=== PATIENT | female | born 1975 | race Caucasian/White ===

== ENCOUNTER → 2018-06-16 | Outpatient (CLI) | payer BC, OTHER ==
[~2018-06-16] MED LIST: AMITRIPTYLINE H25 M2; AMITRIPTYLINE H25 M3 PO; APIDRA; ATIVAN2 MG PO; AUGMENTIN 875875 MG; BACTRIM DS TAB1 EACH PO; COLACE1 EAC1 PO; DIFLUCAN150 MG PO; K-DUR 20 MEQ T20 MEQ PO; LANTUS100 UNIT/M SUBQ; LORTAB 5 MG/5001 TA1; NABUMETONE 750750 M1 PO; NORCO 5-325 TA1 EACH PO; NORTRIPTYLINE H50 MG PO; NOVOLOG100 UNIT/1; PHENERGAN 25 MG25 M1; PHENERGAN 25 MG25 M1 PO; PHENERGAN25 M2 RC; REGLAN 10 MG TA10 MG PO; ULTRAM 50MG TAB50 MG PO; VICODIN 5-5001 EACH PO; ZOFRAN 4 MG ORAL4 M1 DIS
== END ==
LOC: ULTRA 08:56
DX: M79.89 Other specified soft tissue disorders (principal); M79.604 Pain in right leg